=== PATIENT | male | born 1950 | race Caucasian/White ===

== ENCOUNTER 2025-02-22 09:21 | Outpatient (CLI) | payer MEDICARE | END 2025-02-22 09:22 | disposition home or self-care (01) | LOC: MRI 09:21 | PROVIDERS: ATTEND Physician Assistant Medical | DX: K85.20 Alcohol induced acute pancreatitis without necrosis or infection (principal); R79.89 Other specified abnormal findings of blood chemistry; D72.829 Elevated white blood cell count, unspecified; R79.0 Abnormal level of blood mineral; K80.20 Calculus of gallbladder without cholecystitis without obstruction; K44.9 Diaphragmatic hernia without obstruction or gangrene; Z98.890 Other specified postprocedural states | CPT/HCPCS: 74183 ==